=== PATIENT | female | born 1990 | race Caucasian/White ===

== ENCOUNTER 2016-11-07 17:04 | Emergency (ER) | payer SELFPAY ==
[2016-11-07] MEDS ORDERED: NS 0.9% 1000 ML* 1,000 ML IV ONE (17:43)
[2016-11-07] MEDS ORDERED: Ketorolac INJ* 30 MG/ML 1 ML VIAL IV ONE (17:43)
[2016-11-07] MEDS ORDERED: diPHENhydraMINE IV* 50 MG/ML 1 ml VIAL (BENADRYL) IV ONE (17:43)
[2016-11-07] MEDS ORDERED: Metoclopramide IV* 5 MG/ML 2 ML VIAL IV ONE (17:43)
--- NOTE | 2016-11-07 19:39 | RAD ---
INDICATION: Headache COMPARISON: None TECHNIQUE: Noncontrast axial source images were acquired from the skull base to the vertex. FINDINGS: Ventricles/sulci: The ventricles and cisterns are normal in size and configuration for age. Brain parenchyma: There is no focal parenchymal finding, evidence of intracranial mass, or intracranial mass effect. Intracranial hemorrhage:None. Extra-axial spaces: There are no abnormal extra axial fluid collections or evidence of extra-axial mass. Calvarium: There is no calvarial fracture or other calvarial abnormality. Scalp: There is no evidence of scalp or extracalvarial soft tissue abnormality. Paranasal sinuses/mastoid: The paranasal sinuses and mastoid air cells are clear. Other: None. IMPRESSION: NEGATIVE EXAMINATION
[2016-11-07 20:46] VITALS: BP 132/79
--- NOTE | 2016-11-07 22:28 | ED ---
Oj Perkins Thomas, scribed for Nnamdi Bruner MD on 11/07/16 at 1736 . Headache - HPI Summary HPI Summary: The pt is a 26 y/o F with a Hx of migraines c/o a diffuse throbbing SHARPE that began today at 16:00. The pt rates the pain 7/10. The pain is aggravated and alleviated by nothing. 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 Before the patient developed the headache, she noticed visual changes characterized as black dots in my eyes and then the headache started. After the headache began, she also began to develop L-sided numbness, bilateral hand numbness, dizziness, and nausea. She still has her headache at the time of examination but she no longer has her other symptoms. During her previous migraine headaches, she had a similar headache but she did not have these visual changes or nausea. She has not seen a neurologist for her migraines headaches. PMHx: migraines, elevated platelets. PSHx: none. SHx: no smoking, no alcohol use, no illicit drug use. FHx: CAD. She is employed at the [employer]. Her PCP is in [place]. - History Of Current Complaint Chief Complaint: EDDizziness Stated Complaint: HEADACHE,BLURRED VISION,NUMBNESS LT SIDE Time Seen by Provider: 11/07/16 17:27 Hx Obtained From: Patient Onset/Duration: Sudden Onset, Started minutes ago - onset today at 16:00, Still Present Currently Pain Is: Current Pain Scale(0-10)= - 7 Timing: Constant Character: Throbbing Location of Headache: Diffuse Aggravating Factor: Nothing Allevating Factors: Nothing Associated Signs And Symptoms: Dizziness, Nausea, Visual Changes - characterized as "black dots in my eyes", Other (Noted In Comments) - POS: L- sided numbness, bilateral hand numbness Related History: Similar Episode/DX As: - Hx of migraine headaches - Allergies/Home Medications Allergies/Adverse Reactions: Allergies Allergy/AdvReac Type Severity Reaction Status Date / Time No Known Allergies Allergy Verified 11/07/16 17:36 PMH/Surg Hx/FS Hx/Imm Hx Previously Healthy: No Endocrine/Hematology History: Reports: Other Endocrine/Hematological Disorders - Hx elevated platelets Neurological History: Reports: Hx Migraine - Surgical History Surgery Procedure, Year, and Place: None Infectious Disease History: Denies: Traveled Outside the [place] in Last 30 Days - Family History Known Family History: Positive: Cardiac Disease - Social History Occupation: Employed Full-time Alcohol Use: None Hx Substance Use: No Substance Use Type: Reports: None Hx Tobacco Use: No Smoking Status (MU): Never Smoked Tobacco Review of Systems Negative: Fever Positive: Other - POS: visual changes characterized as "black dots in my eyes" Positive: Nausea Neurological: Other - POS: dizziness Positive: Headache, Numbness - L-sided and bilateral hand All Other Systems Reviewed And Are Negative: Yes Physical Exam Triage Information Reviewed: Yes Vital Signs On Initial Exam: Initial Vitals Temp Pulse Resp BP Pulse Ox 98.1 F 80 18 136/91 100 11/07/16 17:13 11/07/16 17:13 11/07/16 17:13 11/07/16 17:13 11/07/16 17:13 Vital Signs Reviewed: Yes Appearance: Positive: Well-Appearing, No Pain Distress, Well-Nourished Skin: Positive: Warm, Skin Color Reflects Adequate Perfusion, Dry Head/Face: Positive: Normal Head/Face Inspection Eyes: Positive: Normal ENT: Positive: Normal ENT inspection Neck: Positive: Supple, Nontender Respiratory/Lung Sounds: Positive: Clear to Auscultation, Breath Sounds Present Cardiovascular: Positive: RRR Abdomen Description: Positive: Nontender, Soft Bowel Sounds: Positive: Present Musculoskeletal: Positive: Normal Neurological: Positive: Normal Psychiatric: Positive: Normal, Affect/Mood Appropriate Diagnostics - Vital Signs Vital Signs Temp Pulse Resp BP Pulse Ox 11/07/16 17:13 98.1 F 80 18 136/91 100 - Laboratory Lab Statement: Any lab studies that have been ordered have been reviewed, and results considered in the medical decision making process. - CT CT Brain CT Interpretation: No Acute Changes - Negative Examination. ED Physician has read this report and agrees. CT Interpretation Completed By: Radiologist Re-Evaluation - Re-Evaluation First Eval Re-Evaluation Time: 19:06 Change: Improved Comment: Her migraine has improved. Headache Course/Dx - Course Course Of Treatment: Ms. Mendoza presented C/O a typical migraine SHARPE that started atypically. She had dark spots in her eyes and then felt like the left side of her face and body were numb. This passed after a few minutes but the SHARPE started and she began to feel tingling in the fingers of both hands. The throbbing global SHARPE and tingling were her only symptoms on arrival here and they resolved completely with a migraine cocktail of toradol, benadryl, reglan and IVNS. I spoke with Dr. Negron who recommended CT and F/U if negative. - Diagnoses Provider Diagnoses: Migraine - Physician Notifications Discussed Care Of Patient With: Lupe Negron Time Discussed With Above Provider: 19:03 Instructed by Provider To: Other - We discussed patient care. Discharge - Discharge Plan Condition: Stable Disposition: HOME Patient Education Materials: Migraine Headache (ED) Referrals: [facility] [Outside] Additional Instructions: Follow up with your primary care provider in 3-5 days. If you do not have a primary care provider, use the physician referral service to find one. Return to the emergency department for any new or worsening symptoms. The documentation as recorded by the Oj bagley Thomas accurately reflects the service I personally performed and the decisions made by me, Nnamdi Bruner MD.
== END 2016-11-07 20:45 | disposition home or self-care (01) ==
LOC: ED 17:04
DX: G43.909 Migraine, unspecified, not intractable, without status migrainosus (principal); R11.0 Nausea
CPT/HCPCS: 70450; 96374; 96375; 99283; J1200; J1885; J2765

== ENCOUNTER 2016-12-01 13:30 | Emergency (ER) | payer BC ==
[2016-12-01] MEDS ORDERED: NS 0.9% 1000 ML* 1,000 ML IV ONE (14:39)
[2016-12-01] MEDS ORDERED: Metoclopramide IV* 5 MG/ML 2 ML VIAL IV SLOW PU ONE (14:41)
[2016-12-01 15:04] LABS: Hematocrit 39 % (35-47); Hemoglobin 13.1 g/dl (12.0-16.0); Mean Corpuscular HGB Conc 34 g/dl (31-36); Mean Corpuscular Hemoglobin 29 pg (27-31); Mean Corpuscular Volume 87 fL (80-97); Mean Platelet Volume 7 um3 (7.4-10.4); Red Blood Count 4.48 10^6/ul (4.0-5.4); Red Cell Distribution Width 12 % (10.5-15); White Blood Count 7.1 10^3/ul (3.5-10.8)
[2016-12-01 15:32] LABS: ALT 10 U/L (7-52); AST 13 U/L (13-39); Albumin 4.3 g/dL (3.2-5.2); Alkaline Phosphatase 33 U/L (34-104); Anion Gap 7 mmol/L (2-11); BUN/Creatinine Ratio 17.6 (8-20); Blood Urea Nitrogen 13 mg/dL (6-24); CO2 Carbon Dioxide 25 mmol/L (22-32); Calcium 9.5 mg/dL (8.6-10.3); Chloride 104 mmol/L (101-111); EGFR Non-African American 95.6 (>60); Globulin 2.9 g/dL (2-4); Glucose 97 mg/dL (70-100); Magnesium 1.9 mg/dL (1.9-2.7); Potassium 4.4 mmol/L (3.5-5.0); Sodium 136 mmol/L (133-145); Total Protein 7.2 g/dL (6.4-8.9)
[2016-12-01 15:52] LABS: TSH (Thyroid Stimulating Horm) 1.97 mcIU/mL (0.34-5.60)
--- NOTE | 2016-12-01 16:45 | RAD ---
HISTORY: Syncopal episode COMPARISONS: None TECHNIQUE: The following sequences were obtained of the head: Sagittal T1-weighted images, axial T2-weighted images, axial FLAIR images, axial susceptibility weighted images, axial T1-weighted images. Additionally, axial diffusion-weighted images were obtained with calculated apparent diffusion coefficients.. FINDINGS: HEMORRHAGE/INFARCT: There is no hemorrhage or acute infarct. MASSES/SHIFT: There is no mass or shift. EXTRA-AXIAL SPACES/MENINGES: There are no extra-axial fluid collections. SULCI AND VENTRICLES: The sulci and ventricles are normal in size and position for the patient's stated age. CEREBRUM: There are no focal parenchymal abnormalities. BRAINSTEM: There are no focal parenchymal abnormalities. CEREBELLUM: There are no focal parenchymal abnormalities. The cerebellar tonsils are normal in size and position. SELLA: The sella is normal. PINEAL: The pineal region is clear. CP ANGLE/TEMPORAL BONES: The labyrinthine structures are grossly normal. VESSELS: Normal flow-voids are noted within the visualized vertebral vasculature. DIFFUSION ABNORMALITIES: There are no diffusion abnormalities. PARANASAL SINUSES/MASTOIDS: The paranasal sinuses are clear. ORBITS: The orbits are unremarkable. BONES AND SOFT TISSUE: No bone or soft tissue abnormalities are noted. IMPRESSION: NORMAL BRAIN MRI.
--- NOTE | 2016-12-01 16:46 | RAD ---
INDICATION: Syncopal episode COMPARISON: None TECHNIQUE: A 3-D time of flight magnetic resonance angiogram was performed from the carotid bifurcation to the vertex without intravenous contrast. Images were reconstructed in the maximum intensity projection format FINDINGS: Brain: The internal carotid, anterior and middle cerebral arteries appear patent without evidence for high-grade stenosis or occlusion. The vertebral, basilar and posterior cerebral arteries appear patent without evidence for high-grade stenosis or occlusion. No aneurysm or vascular malformation is seen. Vertebrals: The visualized vertebral arteries appear patent bilaterally. IMPRESSION: NORMAL NONCONTRAST MRA OF THE BRAIN.
[2016-12-01] MEDS ORDERED: Acetaminophen TAB* 325 MG PO ONE (16:58)
[2016-12-01 17:14] VITALS: BP 103/70
--- NOTE | 2016-12-01 18:35 | RAD ---
INDICATION: Syncope COMPARISON: None TECHNIQUE: PA and lateral views of the chest were obtained. FINDINGS: The heart and mediastinum are normal in size and contour. The lungs are grossly clear. There is no evidence of large pleural effusion. Visualized bones are normal for the patient's age. There is no radiographic evidence of free air beneath the diaphragm IMPRESSION: No radiographic evidence of acute cardiopulmonary disease.
--- NOTE | 2016-12-01 18:47 | ED ---
Oj Perkins Thomas, scribed for Jefferson James MD on 12/01/16 at 1424 . Syncope/Near Syncope - HPI Summary HPI Summary: The pt is a 26 y/o F presenting to the ED c/o a syncopal episode that occurred when she was showering today at 12:30. Before the episode, she felt lightheaded and her vision went black. She was nauseous and short of breath prior to the episode as well. Her boyfriend was present and he caught her as she fell. He says she did not suffer any injury. She had LOC for 2-3 minutes. After the syncopal episode, she was mumbo jumbo for 2-3 minutes but was back to baseline in 5-10 minutes. In the ED, she feels lightheaded, has a headache, and has R hand numbness. Pt additionally c/o a L-sided SHARPE. She often has headaches and this SHARPE is in consistent in location with her prior headaches. Pt denies palpitations, leg pain, CP, abd pain, vomiting, diarrhea, and urinary symptoms. She denies prior syncopal episodes. She denies recent long trips or illness. She has no prior pregnancies. She is on oral contraceptives. PMHx: myeloproliferative disorder, migraine. PSHx: none. SHx: no smoking, no alcohol use, no illicit drug use. FHx: CAD. The patient is accompanied by her boyfriend and parents. - History Of Current Complaint Chief Complaint: EDSyncope Time Seen by Provider: 12/01/16 14:17 Hx Obtained From: Patient, Family/Formula Room Worker - she is accompanied by her boyfriend and parents Onset/Duration: Sudden Onset, Lasting Minutes - syncope was today at 12:30, Resolved Context: Witnessed Activity At Onset: Other - Showering Associated Head Trauma: No Aggravating Factor(s): Nothing Alleviating Factor(s): Spontaneous Resolution Associated Signs And Symptoms: Dizzy, Headache, Lightheadedness, Numbness - R hand, Shortness Of Breath, Other - NEGATIVE: palpitations, leg pain, CP, abd pain, vomiting, diarrhea, and urinary symptoms - Allergies/Home Medications Allergies/Adverse Reactions: Allergies Allergy/AdvReac Type Severity Reaction Status Date / Time No Known Allergies Allergy Verified 11/07/16 17:36 Home Medications: Home Medications Drospirenone-Ethinyl Estradiol [Gianvi 3-0.02 mg] 1 tab PO BEDTIME 12/01/16 [ History Confirmed 12/01/16] PMH/Surg Hx/FS Hx/Imm Hx Previously Healthy: No Endocrine/Hematology History: Reports: Other Endocrine/Hematological Disorders - Hx elevated platelets, myeloproliferative disorder Neurological History: Reports: Hx Migraine - Surgical History Surgery Procedure, Year, and Place: None Infectious Disease History: No Infectious Disease History: Denies: Traveled Outside the [place] in Last 30 Days - Family History Known Family History: Positive: Cardiac Disease - no congenital heart disease or early sudden ., Other - Strong family history of complex migraines in mother and brother. - Social History Alcohol Use: None Hx Substance Use: No Substance Use Type: Reports: None Hx Tobacco Use: No Smoking Status (MU): Never Smoked Tobacco Review of Systems Positive: Other - Vision went dark Negative: Palpitations, Chest Pain Positive: Shortness Of Breath Positive: Nausea. Negative: Abdominal Pain, Vomiting Positive: no symptoms reported Positive: Other - NEGATIVE: leg pain Neurological: Other - Syncope with LOC, lightheadedness Positive: Headache, Numbness - R hand All Other Systems Reviewed And Are Negative: Yes Physical Exam Triage Information Reviewed: Yes Vital Signs On Initial Exam: Initial Vitals Temp Pulse Resp BP Pulse Ox 98.1 F 81 20 122/86 102 12/01/16 13:38 12/01/16 13:38 12/01/16 13:38 12/01/16 13:38 12/01/16 13:38 Vital Signs Reviewed: Yes Appearance: Positive: Well-Appearing, No Pain Distress Skin: Positive: Warm, Skin Color Reflects Adequate Perfusion Head/Face: Positive: Normal Head/Face Inspection Eyes: Positive: EOMI, LUIS ENT: Positive: Pharynx normal Neck: Positive: Supple, Nontender Respiratory/Lung Sounds: Positive: Clear to Auscultation, Breath Sounds Present Cardiovascular: Positive: RRR. Negative: Murmur Abdomen Description: Positive: Nontender Musculoskeletal: Positive: Strength/ROM Intact Neurological: Positive: Sensory/Motor Intact, Alert, Oriented to Person Place, Time, CN Intact II-III, Finger to Nose, Speech Normal Psychiatric: Positive: Normal - Bernadette Coma Scale Best Eye Response: 4 - Spontaneous Best Motor Response: 6 - Obeys Commands Best Verbal Response: 5 - Oriented Glascow Coma Scale Comments: 15 Diagnostics - Vital Signs Vital Signs Temp Pulse Resp BP Pulse Ox 12/01/16 13:38 98.1 F 81 20 122/86 102 - Laboratory Lab Results: Lab Results 12/01/16 12/01/16 Range/Units 14:50 14:50 WBC 7.1 (3.5-10.8) 10^3/ul RBC 4.48 (4.0-5.4) 10^6/ul Hgb 13.1 (12.0-16.0) g/dl Hct 39 (35-47) % MCV 87 (80-97) fL MCH 29 (27-31) pg MCHC 34 (31-36) g/dl RDW 12 (10.5-15) % Plt Count 390 (150-450) 10^3/ul MPV 7 L (7.4-10.4) um3 Neut % (Auto) 73.9 (38-83) % Lymph % (Auto) 18.1 L (25-47) % Levy % (Auto) 6.4 (1-9) % Eos % (Auto) 0.7 (0-6) % Baso % (Auto) 0.9 (0-2) % Absolute Neuts (auto) 5.2 (1.5-7.7) 10^3/ul Absolute Lymphs (auto) 1.3 (1.0-4.8) 10^3/ul Absolute Monos (auto) 0.5 (0-0.8) 10^3/ul Absolute Eos (auto) 0 (0-0.6) 10^3/ul Absolute Basos (auto) 0.1 (0-0.2) 10^3/ul Absolute Nucleated RBC 0 10^3/ul Nucleated RBC % 0 D-Dimer, Quantitative < 200 (Less Than 230) ng/mL Result Diagrams: 12/01/16 14:50 12/01/16 14:50 Lab Statement: Any lab studies that have been ordered have been reviewed, and results considered in the medical decision making process. - Radiology CXR Xray Interpretation: No Acute Changes - No active cardiopulmnoary disease. ED physician has reviewed this report and agrees. Radiology Interpretation Completed By: Radiologist - EKG 13:55 Cardiac Rate: NL - 79 BPM EKG Interpretation: Normal sinus rhythm. No STEMI. - Additional Comments Diagnostic Additional Comments: Head MRA. Interpreted by radiologist. Impression: normal noncontrast MRA of the brain. ED Physician has reviewed this report and agrees. Brain MRI. Interpreted by radiologist. Impression: normal brain MRI. ED Physician has reviewed this report and agrees. Re-Evaluation - Re-Evaluation First Eval Re-Evaluation Time: 15:39 Change: Improved - case discussed with Dr Hopson, neurology. He recommends MRI brain. Course/Dx Assessment/Plan: The pt is a 26 y/o F c/o a syncopal episode that occurred when she was showering today at 12:30. Before the episode, she felt lightheaded, her vision went black, she was nauseous, and was short of breath. She was not postictal. The patient was given IV fluids and Reglan. EKG was obtained. Bloodwork was obtained. Head MRA reveals normal noncontrast MRA of the brain. Brain MRI reveals normal brain MRI. ED Physician has reviewed this report and agrees. The case was discussed in detail with Dr Hopson, and he will see in follow up in the office. He recommedned the MRI/A study which is normal. The patient has a family history of complex migraine headaches with focal deficits in her brother who gets double vision and mother who gets numbness. She will call her PMD at [place] as well for close follow up. She has had no CP, SOB.EKG , and d dimer are negative. She has been hemodynamically stable. She Has no heart murmur and no family hisotry of congenital heart disorder. She feels very good at this time, and headache gone. - Diagnoses Provider Diagnoses: Migraine headache, complex migriane headache , Syncope Discharge - Discharge Plan Condition: Good Disposition: HOME Patient Education Materials: Migraine Headache (ED), Syncope (ED) Referrals: Non Staff,Doctor [Primary Care Provider] - Gordo Hopson MD [Medical Doctor] - [facility] [place] [facility] [Outside] The documentation as recorded by the Oj bagley Thomas accurately reflects the service I personally performed and the decisions made by me, Jefferson James MD.
[2016-12-02 16:32] LABS: Phospholipid Ab IgG < 9.4 GPL; Phospholipid Ab IgM, S < 9.4 MPL
== END 2016-12-01 18:57 | disposition home or self-care (01) ==
LOC: ED 13:30
DX: G43.109 Migraine with aura, not intractable, without status migrainosus (principal); R55 Syncope and collapse
CPT/HCPCS: 36415; 70544; 70551; 71020; 80053; 83605; 83735; 84443; 84484; 84702; 85025; 85379; 86147; 93005; 96360; 96374; 99283; A9270-GY; J2765